=== PATIENT | male | born 1970 | race Caucasian/White ===

== ENCOUNTER → 2018-08-31 | Outpatient (CLI) | payer OTHER ==
--- NOTE | 2018-08-31 09:49 | MR ---
EXAMINATION TYPE: MR knee RT wo con DATE OF EXAM: 08/31/2018 COMPARISON: None HISTORY: Right knee pain TECHNIQUE: Multiplanar, multisequence imaging of the right knee is performed without IV contrast. FINDINGS: MEDIAL MENISCUS: There is complex signal the posterior horn the medial extending in the body compatib le with meniscal tear. Reactive adjacent marrow edema within the proximal tibia noted. There is extru aminata of the medial meniscus. LATERAL MENISCUS: Anterior and posterior horns are intact without tear. CRUCIATE LIGAMENTS: The anterior and posterior cruciate ligaments are intact and unremarkable. COLLATERAL LIGAMENTS: The medial collateral ligament and lateral collateral ligament complex are inta ct and unremarkable. EXTENSOR MECHANISM: Visualized quadriceps and patellar tendons are intact. EFFUSION: Trace of fluid in the suprapatellar bursa noted. POPLITEAL CYST: 1.5 x 1.5 x 2 cm popliteal fossa cyst adjacent free fluid in the soft tissues suspic ious for ruptured popliteal fossa cyst TRICOMPARTMENT SPACES: There is narrowing of the joint spaces particularly along the medial compartme nt. There is thinning of the medial articular femoral and tibial cartilage compatible with chondromal acia. There is fibrillation patellar cartilage. Localized. 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 IMPRESSION: 1. Complex tear posterior horn and body medial meniscus. 2. Osteoarthritis with changes of chondromalacia. 3. Ruptured small popliteal fossa cyst.
== END | disposition home or self-care (01) ==
LOC: RADMRIMAIN 08:53
PROVIDERS: ATTEND Internal Medicine Rheumatology
DX: S83.241A Other tear of medial meniscus, current injury, right knee, initial encounter (principal); M17.11 Unilateral primary osteoarthritis, right knee; M94.261 Chondromalacia, right knee; M66.0 Rupture of popliteal cyst

== ENCOUNTER → 2019-06-01 | Outpatient (CLI) | payer OTHER ==
--- NOTE | 2019-06-01 11:39 | XR ---
First digit left hand HISTORY: Laceration, open wound 3 views of the first digit left hand There is overlying dressing present. Bone mineralization, joint spaces and alignment are maintained. No radiopaque foreign body. IMPRESSION: No bone abnormality.
== END | disposition home or self-care (01) ==
LOC: RADXRMAIN 10:58
PROVIDERS: ATTEND Emergency Medicine
DX: S61.303A Unspecified open wound of left middle finger with damage to nail, initial encounter (principal)

== ENCOUNTER → 2019-06-23 | Outpatient (CLI) | payer OTHER ==
--- NOTE | 2019-06-23 16:35 | XR ---
EXAMINATION TYPE: XR finger LT, 3 views coned down left thumb DATE OF EXAM: 06/23/2019 Comparison: 06/01/2019 Clinical History: 49-year-old male S61.369D Unspecified open wound of unspecified finger Findings: There is a bandage overlying the thumb. No acute fracture, subluxation, or dislocation is seen. No re tained radiopaque foreign body. There may be some soft tissue swelling to the distal aspect of the th umb. Impression: Suggestion of some soft tissue swelling without underlying acute osseous abnormality seen.
== END | disposition home or self-care (01) ==
LOC: RADXRMAIN 16:03
PROVIDERS: ATTEND Emergency Medicine
DX: S61.309 Unspecified open wound of unspecified finger with damage to nail (principal)